=== PATIENT | female | born 1965 | race Caucasian/White ===

== ENCOUNTER 2019-01-28 20:34 | Observation (INO) | payer OTHER ==
[~2019-01-28] VITALS: Ht 162.6 cm; Wt 99.5 kg
[2019-01-28] MEDS ORDERED: ENBREL50 MG/1 M1 SQ (21:01)
[2019-01-28 21:03] LABS: HEMATOCRIT 33.6 % (37.0-47.0); HEMOGLOBIN 10.6 g/dL (12.5-16.0); MEAN CORPUSCULAR HGB CONC 32 g/dL (33-37); MEAN PLATELET VOLUME 10.5 fl (7.4-10.4); PLATELET COUNT 313 K/mm3 (130-400); RED CELL DISTRIBUTION WIDTH 16.1 % (11.5-14.5)
[2019-01-28 21:22] LABS: ALBUMIN 3.7 g/dL (3.5-5.0); CALCIUM 8.9 mg/dL (8.4-10.2); POTASSIUM 3.2 mmol/L (3.5-5.1); TOTAL BILIRUBIN 0.9 mg/dL (0.2-1.2); TOTAL PROTEIN 6.9 g/dL (6.4-8.3)
[2019-01-28 21:24] LABS: MEAN CELL VOLUME 66 fl (78-100); MEAN CORPUSCULAR HEMOGLOBIN 21 pg (27-31); WHITE BLOOD COUNT 21.6 K/mm3 (4.8-10.8)
[2019-01-28 21:25] LABS: LYMPHOCYTE 5 % (20-51); MONOCYTE 1 % (3-10); NEUTROPHILS 94 % (42-75)
[2019-01-28 23:41] LABS: URINE COLOR YELLOW
[2019-01-28 23:42] LABS: URINE APPEARANCE HAZY; URINE BILIRUBIN NEGATIVE (NEGATIVE); URINE GLUCOSE NEGATIVE (NEGATIVE); URINE KETONE NEGATIVE (NEGATIVE); URINE NITRATE NEGATIVE (NEGATIVE); URINE PROTEIN(semi-quant) 1+ mg/dL (NEGATIVE); URINE UROBILINOGEN NORMAL (NORMAL)
[2019-01-28 23:43] LABS: URINE BLOOD TRACE (NEGATIVE); URINE LEUKOCYTE ESTERASE TRACE (NEGATIVE)
[2019-01-29] VITALS (8 sets, daily range): BP systolic 104–115; BP diastolic 65–73
[2019-01-29 05:43] LABS: ALBUMIN 3.2 g/dL (3.5-5.0); CALCIUM 8.1 mg/dL (8.4-10.2); POTASSIUM 3.4 mmol/L (3.5-5.1); TOTAL BILIRUBIN 0.5 mg/dL (0.2-1.2); TOTAL PROTEIN 6.2 g/dL (6.4-8.3)
[2019-01-29 05:45] LABS: HEMATOCRIT 30.7 % (37.0-47.0); HEMOGLOBIN 9.5 g/dL (12.5-16.0); MEAN CORPUSCULAR HGB CONC 31 g/dL (33-37); MEAN PLATELET VOLUME 9.9 fl (7.4-10.4); PLATELET COUNT 224 K/mm3 (130-400); RED CELL DISTRIBUTION WIDTH 16.1 % (11.5-14.5); WHITE BLOOD COUNT 17.8 K/mm3 (4.8-10.8)
--- NOTE | 2019-01-29 07:08 | NUR ---
REPORT RECEIVED FROM ISAIAH GREENFIELD.
--- NOTE | 2019-01-29 07:50 | NUR ---
AWAKE AND TALKATIVE. REPORTS DIARRHEA DURING NOC, BUT NO EMESIS. CURRENTLY FEELS SLIGHTLY NAUSEATED. C/O BODY ACHES AT 3/10 ON NUMERIC PAIN SCALE. ABD DISTENDED WITH LOW MIDLINE AND RLQ TENDERNESS. BOWEL SOUNDS ACTIVE X4 QUADS. NS INFUSING PER ORDERS TO INTACT IV SITE AT RT [facility]. DENIES NEEDS AT THIS TIME.
[2019-01-29 08:37] LABS: MEAN CELL VOLUME 67 fl (78-100); MEAN CORPUSCULAR HEMOGLOBIN 21 pg (27-31)
[2019-01-29 08:39] LABS: LYMPHOCYTE 4 % (20-51); MONOCYTE 2 % (3-10); NEUTROPHILS 94 % (42-75)
--- NOTE | 2019-01-29 10:17 | NUR ---
EDUCATION PROVIDED TO PATIENT REGARDING NEED FOR A QUALITY CLEAN CATCH URINE SPECIMEN. INSTRUCTIONS PROVIDED AND SUPPLIES LEFT IN BATHROOM FOR NEXT VOID.
--- NOTE | 2019-01-29 10:47 | NUR ---
DR WALKER AT BEDSIDE FOR ASSESSMENT.
--- NOTE | 2019-01-29 16:07 | NUR ---
SEVERAL VISITORS PRESENT IN ROOM. NAUSEA MINIMAL; DENIES NEED FOR ZOFRAN. SPRITE REQUESTED AND PROVIDED.
--- NOTE | 2019-01-29 17:24 | NUR ---
PATIENT SIPPING ON SPRITE. WHEN SUPPER TRAY DELIVERED, THE THOUGHT OF EATING UPSETS HER STOMACH. LUKE REQUESTED AND ADMINISTERED. SHE WOULD LIKE HER TRAY LEFT AT BEDSIDE IN HOPES THAT SHE WILL FEEL LIKE EATING AGAIN SOON.
[2019-01-29 17:50] LABS: URINE APPEARANCE HAZY; URINE COLOR YELLOW; URINE PROTEIN(semi-quant) 1+ mg/dL (NEGATIVE)
[2019-01-29 17:51] LABS: URINE BILIRUBIN NEGATIVE (NEGATIVE); URINE BLOOD TRACE (NEGATIVE); URINE KETONE NEGATIVE (NEGATIVE); URINE LEUKOCYTE ESTERASE NEGATIVE (NEGATIVE); URINE NITRATE NEGATIVE (NEGATIVE); URINE UROBILINOGEN NORMAL (NORMAL)
[2019-01-29 17:52] LABS: URINE MUCUS PRESENT (NOT PRESENT)
--- NOTE | 2019-01-29 19:05 | NUR ---
Bedside report received from Tressa Fox RN. Pt awake and a/o x 3, up to bathroom. Saleem CATHERINE reports pt in that bathroom vomiting.
--- NOTE | 2019-01-29 19:20 | NUR ---
Pt back in bed, at side. C/o's of stomach tenderness and soreness. C/o's of still feeling nauseated. C/o's of having slight headache from "throwing up." Call light with in reach. Bed alarm set.
--- NOTE | 2019-01-29 19:21 | NUR ---
REPORT PROVIDED TO MARIZA GREENFIELD.
--- NOTE | 2019-01-29 20:00 | NUR ---
Saleem CATHERINE reported pt had vomited and continues to c/o of headache. Dr Santos notified. Orders received.
--- NOTE | 2019-01-29 20:01 | NUR ---
Pt had liquid brown color stool along with vomiting.
--- NOTE | 2019-01-29 20:15 | NUR ---
2002 IV fluids of 1/2NS started at 125mls/hr. 2005 tylenol 625mg PO given. 2008 Reglan 10mg given SIVP.
--- NOTE | 2019-01-29 20:52 | NUR ---
IV fluids changed to 1/2 NS with 20meq KCL at 125mls/hr. Pt resting in bed with eyes closed and even none labored respirations. Bed alarm set and call light with in reach of pt.
[2019-01-29 21:23] LABS: HEMOGLOBIN 8.9 g/dL (12.5-16.0); MEAN CORPUSCULAR HGB CONC 31 g/dL (33-37); MEAN PLATELET VOLUME 10.4 fl (7.4-10.4); PLATELET COUNT 179 K/mm3 (130-400); RED BLOOD COUNT 4.38 M/mm3 (4.10-5.30); RED CELL DISTRIBUTION WIDTH 15.8 % (11.5-14.5); WHITE BLOOD COUNT 11.8 K/mm3 (4.8-10.8)
[2019-01-29 21:38] LABS: ALBUMIN 3.1 g/dL (3.5-5.0); CALCIUM 8.5 mg/dL (8.4-10.2); POTASSIUM 3.2 mmol/L (3.5-5.1); TOTAL BILIRUBIN 0.4 mg/dL (0.2-1.2)
[2019-01-29 21:39] LABS: MEAN CELL VOLUME 66 fl (78-100); MEAN CORPUSCULAR HEMOGLOBIN 20 pg (27-31)
--- NOTE | 2019-01-29 23:50 | NUR ---
Pt up to bathroom, no c/o's voiced. Voided without difficulty and and loose brown color stool.
[2019-01-30 02:50] VITALS: BP 123/72
--- NOTE | 2019-01-30 04:50 | NUR ---
0436 up to bathroom, c/o of nausea. 0446 Vomited small amount of bile. Pt voided 100mls of dark yellow urine. Small amount of green liquid stool. C/o's of stomach hurting. 0450 given zofran 4mg SIVP, given ibuprofen 400mg PO.
--- NOTE | 2019-01-30 06:30 | NUR ---
NURSING RECIEVED LAB RESULTS OF POSITIVE BLOOD CULTURE FOR GRAM NEGATIVE RODS, DR. WALKER NOTIFIED AND ORDER RECIEVED TO START IV ZOSYN 3.375 MG IV NOW, MIXED AND HUNG ORDERED
[2019-01-30 06:39] VITALS: BP 115/69
--- NOTE | 2019-01-30 07:10 | NUR ---
Bedside shift report given to Sahara Jewell RN
[2019-01-30 07:41] LABS: LYMPHOCYTE 5 % (20-51); MONOCYTE 1 % (3-10); NEUTROPHILS 94 % (42-75)
--- NOTE | 2019-01-30 08:18 | NUR ---
Assessment complete. Patient resting in bed at time of assessment. Reports feeling "better than I did last night" and feeling nauseated. Refuses breaskfast at this time, states she will attempt to eat toast. Bed in lowest position, call light and personal belongings within reach of patient. Will cont to monitor.
[2019-01-30 09:03] LABS: HEMATOCRIT 27.6 % (37.0-47.0); HEMOGLOBIN 8.4 g/dL (12.5-16.0); MEAN CORPUSCULAR HGB CONC 30 g/dL (33-37); PLATELET COUNT 156 K/mm3 (130-400); RED BLOOD COUNT 4.12 M/mm3 (4.10-5.30); RED CELL DISTRIBUTION WIDTH 15.8 % (11.5-14.5); WHITE BLOOD COUNT 8.8 K/mm3 (4.8-10.8)
[2019-01-30 09:15] LABS: MEAN CELL VOLUME 67 fl (78-100); MEAN CORPUSCULAR HEMOGLOBIN 20 pg (27-31)
[2019-01-30 09:22] LABS: BAND 6 % (0-10); NEUTROPHILS 85 % (42-75)
[2019-01-30 09:23] LABS: CALCIUM 8.5 mg/dL (8.4-10.2); POTASSIUM 3.6 mmol/L (3.5-5.1)
[2019-01-30 09:24] LABS: HYPOCHROMIA 4+; LYMPHOCYTE 8 % (20-51); MICROCYTOSIS 3+; MONOCYTE 1 % (3-10); OVALOCYTES 1+
[2019-01-30 11:12] VITALS: BP 102/67
[2019-01-30 14:42] VITALS: BP 107/68
[2019-01-30 18:12] VITALS: BP 123/75
--- NOTE | 2019-01-30 18:50 | NUR ---
Awake and a/o x 3, up to bathroom with one person stand by assist.
--- NOTE | 2019-01-30 18:54 | NUR ---
Reported off to GIN Fung
--- NOTE | 2019-01-30 19:33 | NUR ---
1919 C/o of back pain from "lying around in bed to long." Given K-pad to apply to back. Stated pain is "more of a ache and soreness." Rates 2 out 10. 1926 Given tylenol 650mg PO. Offered pt a snack, pt declined. Stated "I don't think I should." 1929 IV fluid rate decreased to 83mls/hr, per new orders.
--- NOTE | 2019-01-30 21:01 | NUR ---
C/o's to of nausea, Dr Santos notified, order received for reglan 10mg SIVP. Pt currently sitting up in recliner with feet elevated and ice pack to head.
--- NOTE | 2019-01-30 21:08 | NUR ---
States K-pad is helping with back pain. Rates pain 1 out 10. Pt stated she requested ice pack because she became "hot all over her body."
[2019-01-30 22:55] VITALS: BP 123/75
[2019-01-31 02:52] VITALS: BP 119/80
--- NOTE | 2019-01-31 02:56 | NUR ---
Awake and a/o x 3. C/o's of nausea, given zofran 4mg SIVP.
--- NOTE | 2019-01-31 04:03 | NUR ---
Resting in bed with eyes closed and even none labored respirations. Bed alarm set and call light with in reach of pt. Pt has been up to bathroom x 4 since 1899 and 2244, each time having a loose to soft formed stool.
--- NOTE | 2019-01-31 05:14 | NUR ---
Sitting up in recliner since 417. chair alarm set and call light with in reach. Pt states she is feeling much better. Awake and a/o x 3, watching TV. No c/o's of nausea or pain.
[2019-01-31 06:19] VITALS: BP 113/75
--- NOTE | 2019-01-31 07:07 | NUR ---
REPORT RECEIVED FROM MARIZA GREENFIELD.
--- NOTE | 2019-01-31 07:10 | NUR ---
Bedside shift report given to Tressa Fox RN
[2019-01-31 07:40] LABS: EOS % 0.4 % (1.0-5.0); HEMATOCRIT 28.1 % (37.0-47.0); HEMOGLOBIN 8.5 g/dL (12.5-16.0); MEAN CELL VOLUME 67 fl (78-100); MEAN CORPUSCULAR HEMOGLOBIN 20 pg (27-31); MEAN CORPUSCULAR HGB CONC 30 g/dL (33-37); MEAN PLATELET VOLUME 10.7 fl (7.4-10.4); MONO # 0.3 (0.20-0.80); NEU # 5.3 (1.40-6.50); PLATELET COUNT 159 K/mm3 (130-400); RED BLOOD COUNT 4.21 M/mm3 (4.10-5.30); RED CELL DISTRIBUTION WIDTH 15.9 % (11.5-14.5); WHITE BLOOD COUNT 6.7 K/mm3 (4.8-10.8)
[2019-01-31 07:51] LABS: CALCIUM 8.8 mg/dL (8.4-10.2); POTASSIUM 3.9 mmol/L (3.5-5.1)
[2019-01-31 09:54] LABS: URINE APPEARANCE HAZY; URINE BILIRUBIN NEGATIVE (NEGATIVE); URINE BLOOD 500 (NEGATIVE); URINE COLOR YELLOW; URINE GLUCOSE NEGATIVE (NEGATIVE); URINE KETONE SMALL (NEGATIVE); URINE LEUKOCYTE ESTERASE NEGATIVE (NEGATIVE); URINE NITRATE NEGATIVE (NEGATIVE); URINE PROTEIN(semi-quant) 1+ mg/dL (NEGATIVE); URINE UROBILINOGEN NORMAL (NORMAL)
[2019-01-31 09:55] LABS: URINE MUCUS PRESENT (NOT PRESENT)
--- NOTE | 2019-01-31 10:38 | NUR ---
PATIENT ENCOURAGED TO WALK TODAY. 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 ADVISE PATIENT WE CAN ASSIST HER TO THE FRONT OF THE HOSPITAL BY AMBULATION OR W/C FOR THIS ACTIVITY.
--- NOTE | 2019-01-31 10:45 | NUR ---
PATIENT TO ADMIT TO ROOM 771 AT [facility]. TRANSFER CONSENT SIGNED BY DAUGHTER.
[2019-01-31 11:42] VITALS: BP 120/78
--- NOTE | 2019-01-31 12:15 | NUR ---
PATIENT TO FRONT ENTRANCE OF BUILDING VIA W/C TO VISIT WITH FRIENDS. ACCOMPANIES.
[2019-01-31 15:54] VITALS: BP 138/84
[2019-01-31 18:24] VITALS: BP 118/78
--- NOTE | 2019-01-31 19:00 | NUR ---
Bedside shift report received from Tressa Fox RN
--- NOTE | 2019-01-31 20:15 | NUR ---
Awake and a/o x 3, resting in bed, bed alarm set and call light with in reach of pt. Denies having any back pain or stomach pain. Denies nausea. Pleasant and talkative. States she feels "pretty good."
[2019-01-31 22:53] VITALS: BP 123/77
--- NOTE | 2019-02-01 00:52 | NUR ---
Q hourly checks done, resting in bed eyes closed and even respirations. Bed alarm set and call light with in reach.
[2019-02-01 02:45] VITALS: BP 132/84
--- NOTE | 2019-02-01 02:53 | NUR ---
Angelo ORLANDOA reports pt is c/oing of nausea. Temp 100. Given zofran 4mg SIVP and motrin 400mg PO. Ambulated to the bathroom, one person stand by assist, gait steady.
--- NOTE | 2019-02-01 05:12 | NUR ---
Awake and a/o x 3. Resting in bed, bed alarm set and call light with in reach of pt. Denies having any nausea, back pain or stomach pain. Pt has repositioned self in bed without difficulty.
[2019-02-01 06:26] VITALS: BP 134/81
--- NOTE | 2019-02-01 07:09 | NUR ---
Shift report given to Jessica Mobley RN.
--- NOTE | 2019-02-01 08:00 | NUR ---
Pt reports that she was nauseas in the NOC, rec'd Reglan, no vomiting. States that she would like to go home today but is wanting an Rx for nausea. Reports that Reglan seems to work the best.
[2019-02-01 09:33] LABS: EOS # 0.1 (0.04-0.40); EOS % 1.3 % (1.0-5.0); HEMATOCRIT 29.7 % (37.0-47.0); HEMOGLOBIN 8.9 g/dL (12.5-16.0); MEAN CELL VOLUME 66 fl (78-100); MEAN CORPUSCULAR HEMOGLOBIN 20 pg (27-31); MEAN CORPUSCULAR HGB CONC 30 g/dL (33-37); MEAN PLATELET VOLUME 11.2 fl (7.4-10.4); MONO # 0.3 (0.20-0.80); NEU # 4.1 (1.40-6.50); PLATELET COUNT 183 K/mm3 (130-400); RED BLOOD COUNT 4.47 M/mm3 (4.10-5.30); RED CELL DISTRIBUTION WIDTH 16.3 % (11.5-14.5); WHITE BLOOD COUNT 5.4 K/mm3 (4.8-10.8)
[2019-02-01 09:40] LABS: ALBUMIN 3.2 g/dL (3.5-5.0); POTASSIUM 3.6 mmol/L (3.5-5.1); TOTAL BILIRUBIN 0.4 mg/dL (0.2-1.2); TOTAL PROTEIN 5.8 g/dL (6.4-8.3)
[2019-02-01 11:26] VITALS: BP 132/85
[2019-02-01] MEDS ORDERED: AMOXICILLIN AND1 TA2 PO (13:36)
[2019-02-01] MEDS ORDERED: ZOFRAN4 M2 PO (13:37)
[2019-02-01] MEDS ORDERED: PANTOPRAZOLE SO40 MG PO (13:37)
[2019-02-01 14:02] VITALS: BP 120/79
--- NOTE | 2019-02-01 14:08 | NUR ---
Reviewed d/c instructions with pt and . Both acknowledge understanding. Stress importance of completing abx and f/u appt with Dr. Colón. Also instruct not to restart Embrel until instructed to do so by PCP. Pt and pack all pt belongings and ambulate from facility without difficulty.
== END 2019-02-01 14:08 | disposition home or self-care (01) ==
LOC: ED 20:34 → MED/SURG 01-29 01:06
PROVIDERS: Nurse Practitioner; Nurse Practitioner Primary Care; ADMIT Family Medicine
DX: R65.10 Systemic inflammatory response syndrome (SIRS) of non-infectious origin without acute organ dysfunction (principal); A28.0 Pasteurellosis; N39.0 Urinary tract infection, site not specified; R11.2 Nausea with vomiting, unspecified; R19.7 Diarrhea, unspecified; Z79.52 Long term (current) use of systemic steroids
CPT/HCPCS: G0378; J1956; J2405; J2543; J2765; J3480; J7030; Q9967